=== PATIENT | male | born 1950 | race Caucasian/White ===

== ENCOUNTER → 2023-10-10 | Outpatient (CLI) | payer OTHER ==
[~2023-10-10] MED LIST: ASPIR LOW81 MG PO; LEVOTHYROXINE0.2 MG PO; OMEPRAZOLE DR20 M1 PO; ZOCOR20 MG PO
== END | disposition home or self-care (01) ==
LOC: US 13:44
PROVIDERS: ATTEND Internal Medicine
DX: R22.43 Localized swelling, mass and lump, lower limb, bilateral (principal); M79.89 Other specified soft tissue disorders